=== PATIENT | male | born 1985 | race Caucasian/White ===

== ENCOUNTER 2018-01-09 21:40 | Emergency (ER) | payer OTHER ==
[~2018-01-09] VITALS: Ht 190.5 cm; Wt 90.5 kg
[2018-01-09] MEDS ORDERED: MOTRIN600 MG PO (22:56)
[2018-01-09] MEDS ORDERED: KEFLEX500 MG PO (22:56)
[2018-01-09] MEDS ORDERED: PERCOCET 5/31 TABLET PO (22:56)
[2018-01-10 00:05] VITALS: BP 130/75
== END 2018-01-10 00:07 ==
LOC: EME → EDBD 21:40 → EME 21:40
DX: S68.121A Partial traumatic metacarpophalangeal amputation of left index finger, initial encounter (principal); W23.0XXA Caught, crushed, jammed, or pinched between moving objects, initial encounter; Y92.143 Cell of prison as the place of occurrence of the external cause; Z23 Encounter for immunization
CPT/HCPCS: 73140; 99281; 99285; J0690